=== PATIENT | female | born 1945 | race African-American/Black ===

== ENCOUNTER → 2017-08-10 | Outpatient (CLI) | payer OTHER ==
[~2017-08-10] MED LIST: ALLOPURINOL 30300 M1 PO; AMBIEN 10 MG TA10 MG; ASPIR 8181 MG PO; BENICAR40 MG; CELEXA40 MG; CENTRUM SILVER1 EAC4 PO; CLONAZEPAM 1 MG1 M1 PO; DIPHENHYDRAMINE25 M3 PO; DOCUSATE SODIU100 MG PO; IBUPROFEN 600600 M1 PO; KOMBIGLYZE XR1 EACH; LAMICTAL100 MG PO; LEVAQUIN 500 M500 MG PO; LEVEMIR100 UNIT/1 SUBQ; LEVOTHYROXINE 0.1 MG PO; LOSARTAN POTAS100 MG PO; MAG DELAY64 MG PO; METFORMIN HCL500 MG PO; OMEPRAZOLE 20 M20 MG PO; PAIN RELIEVER325 MG PO; PRAVACHOL40 MG; PRAVACHOL40 MG PO; PREDNISONE 5 MG5 MG PO; PROMETHAZINE-C120 ML; REMERON15 MG; SINGULAIR 10 MG10 M1; SLOW-MAG64 M1 PO; SPIRONOLACTONE25 M1 PO; TIROSINT75 MCG; TRAMADOL HCL50 MG PO; TRAZODONE 150150 M1; TUSSIONEX PENN473 ML PO; VALIUM5 MG PO; VITAMIN D3400 UNI2 PO; ZOFRAN4 MG PO; ZYRTEC 10 MG TA10 M1; ZYRTEC 10 MG TA10 MG PO
== END ==
LOC: SLEEPLAB 13:41
DX: G47.33 Obstructive sleep apnea (adult) (pediatric) (principal)

== ENCOUNTER 2020-01-11 16:53 | Emergency (ER) | payer OTHER ==
[~2020-01-11] VITALS: Ht 162.6 cm; Wt 82.1 kg
[2020-01-11] MEDS ORDERED: ONDANSETRON HCL4 M2 PO (18:36)
[2020-01-11 18:41] VITALS: BP 154/77
== END 2020-01-11 18:48 | disposition home or self-care (01) ==
LOC: ER 16:53
DX: S01.81XA Laceration without foreign body of other part of head, initial encounter (principal); E11.9 Type 2 diabetes mellitus without complications; G47.30 Sleep apnea, unspecified; I10 Essential (primary) hypertension; K21.9 Gastro-esophageal reflux disease without esophagitis; E03.9 Hypothyroidism, unspecified; E78.00 Pure hypercholesterolemia, unspecified; Z88.0 Allergy status to penicillin; Z88.8 Allergy status to other drugs, medicaments and biological substances; W00.9XXA Unspecified fall due to ice and snow, initial encounter; Y93.89 Activity, other specified; Y92.89 Other specified places as the place of occurrence of the external cause; Y99.8 Other external cause status

== ENCOUNTER 2020-01-14 07:54 | Inpatient (IN) | payer OTHER ==
[~2020-01-14] VITALS: Ht 160 cm; Wt 81.6 kg
--- NOTE | ~2020-01-14 | H ---
[facility] [place] [address] HISTORY AND PHYSICAL Name: MARINA ROSARIO Room #: 437-P ADM IN M.R.#: [id number] Admission: 01/14/20 Attend Phys: Brenda De Souza MD Discharge: Date of : 47 Report #: [id number] THIS REPORT FOR: //name// CC: FAM unknown Brenda De Souza DATE OF SERVICE: 01/14/2020 PRIMARY CARE PHYSICIAN: Dr. Xiang Wright at [facility]. PRIMARY PHARMACY: [facility] on [facility]. Durable power of corporate attorney for health and emergency contact in case the patient cannot make a decision is Archie Castellanos Angela, Jamie, Jane and all the 3 daughters. Emergency contact is [phone]. CHIEF COMPLAINT: Fever, nausea and vomiting since 9:00 p.m. last night. HISTORY OF PRESENT ILLNESS: The patient is a very pleasant 74-year-old female with a known history of diabetes, hypertension, gastroesophageal reflux disease, depression, anxiety and neuropathy. The patient informs me that last night she had a barbadian sausage and subsequently she started having abdominal cramping on both the side of the lower abdomen and also intractable nausea and vomiting. The patient denies any diarrhea, but she has had like at least 6 episodes of emesis since last night and felt like she had severe dry mouth and weakness and then started coughing up with a sore throat and so the patient decided to come to the hospital for further evaluation. The patient denies any hematochezia or melena. Denies any recent antibiotic use. She did not have any hematemesis, melena or hematochezia. The patient informs me that besides sore throat she has been having some cough and sore throat and postnasal drip and she really would like a nasal spray for her nasal congestion and allergies. The patient denies any sinus pressure or headache and denies any exposure to infection recently. The patient informs me that Saturday evening earlier this week, she had a fall as she was walking on the concrete in her [employer] and she was wearing tennis shoes; however, it was very needy and she slipped and left leg slipped and subsequently she sustained a fall, falling forward and had 6 stitches on forehead right here in the Emergency Room. The patient informs me that since then she has been very cautious and has not had any headache or dizziness or lightheadedness and she is supposed to see Dr. Wright in about 10 days to get the stitches taken out. The patient denies any weakness or numbness of any part of the body. Denies any dysuria, hematuria, frequency or urgency of urination. She, however, has noticed dark urine. She denies any chest pain, orthopnea or paroxysmal nocturnal dyspnea. PAST MEDICAL HISTORY: Significant for: [facility] [address] [place] [address] HISTORY AND PHYSICAL Name: MARINA ROSARIO Room #: 437-P [facility] IN M.R.#: [id number] Admission: 01/14/20 Attend Phys: Brenda De Souza MD Discharge: Date of : 47 Report #: [id number] 1. Obstructive sleep apnea. 2. Diabetes mellitus type 2. 3. Hypertension. 4. Hyperlipidemia. 5. Hypothyroidism. 6. Gastroesophageal reflux disease. 7. Obesity. ALLERGIES: The patient is allergic to CODEINE and PENICILLIN and they both cause rash. CURRENT MEDICATIONS: 1. Gabapentin. 2. Hydrocodone. 3. Esomeprazole. 4. Losartan. 5. Metformin. 6. Levothyroxine. 7. Paxil. 8. Buspirone. 9. Spironolactone. The patient recently had been given tizanidine and diclofenac, which she has not taken and she understands that they have GI and kidney toxicity and so she has not taken either one of them. FAMILY HISTORY: The patient informs me that mom had diabetes and father had stroke. Other than that she denies any history of cancer. PAST SURGICAL HISTORY: 1. The patient has had cervical spine fusion in 2003. 2. Left ankle surgery before that. 3. Bilateral salpingo-oophorectomy and hysterectomy. PERSONAL AND SOCIAL HISTORY: The patient denies any current tobacco or alcohol use or any recreational drug use and she is full code and her daughters are the durable power of corporate attorney for health, all 3 of them. REVIEW OF SYSTEMS: Ten point review of system was done. Please see the HPI above. In addition to the HPI, the patient also denied any skin rash or exposure to any infection. Nobody else in the family has been sick. PHYSICAL EXAMINATION: VITAL SIGNS: When the patient arrived, had a temperature of 39.3, heart rate 142, respirations 12, blood pressure 130/66 and pulse oximeter 92% on room air. At the time of examination; however, the patient had heart rate of 86, [facility] [address] [place] [address] HISTORY AND PHYSICAL Name: MARINA ROSARIO Room #: 437-P ADM IN M.R.#: [id number] Admission: 01/14/20 Attend Phys: Brenda De Souza MD Discharge: Date of : 47 Report #: [id number] respirations 16, blood pressure 155/79, pulse oximeter 96% and temperature was 39.3. GENERAL: Alert and oriented to time, place and person, very pleasant 74-year-old female who appears her stated age and is complaining of dry mouth. HEENT: The patient has a well-approximated incision of a recent stitches placed on the forehead and no induration, erythema noted. Pupils equally round, reactive to light. Conjunctivae clear. Sclerae nonicteric. Oropharynx clear. Mucous membranes dry. NECK: Supple, no JVD, no lymphadenopathy. HEART: S1, S2, regular. No murmur, no S3, no S4. Tachycardia noted at the time of admission has resolved. LUNGS: Clear to auscultation bilaterally without any crackles or wheezes. ABDOMEN: The patient has a mild discomfort in both lower quadrants as well as in the suprapubic area without any rebound, rigidity or mass noted and no hepatosplenomegaly noted. EXTREMITIES: No edema both lower extremities and skin was dry and intact. ASSESSMENT AND PLAN: 1. Acute febrile illness with systemic inflammatory response syndrome like syndrome with tachycardia, fever and leukocytosis. Influenza has been negative. We will go ahead and do stool for GI panel and PCR for common bacterial infection. Ciprofloxacin in diabetic patient can actually cause more complications and therefore we will use aztreonam for gram-negative coverage and metronidazole for gram-positive and anaerobic coverage and we will get a stool for Clostridium difficile PCR as well. We will go ahead and send stool smear for fecal leukocyte and stool occult blood as well. Lipase is negative. The patient does not have a history of cholecystectomy. However, liver function tests and alkaline phosphatase are all within normal limits, actually low normal, seriously doubt it could be gallbladder related pathology. The patient did have CT scan of abdomen and pelvis and that indicated mild atelectasis in both lower lobes and the gallbladder is unremarkable. Bile duct is normal in size. Pancreas and adrenals are unremarkable and renal cyst noted. Appendix was unremarkable. Colon, however, has a small to moderate amount of fluid throughout the colon with decreased formed stool suggesting recent diarrhea and consider gastroenteritis, so we would go ahead and treat it with gastroenteritis and continue IV fluids and UA, urine culture and sensitivity to be sent. 2. Diabetes mellitus type 2. We will hold metformin as it can cause diarrhea and we will use insulin sliding scale as well as low dose Lantus if the patient is able to take oral intake and her sugars are improving. 3. Hypertension. The patient is on losartan. We will go ahead and resume once the blood pressure starts to trend up. Otherwise, we will use initially hydralazine IV if the patient continues to have nausea and vomiting. 4. Gastroesophageal reflux disease. The patient is on omeprazole; however, because of the nausea and vomiting, we will just use IV Pepcid for now. 5. Hyperlipidemia. Hold statins at the present time. 6. Questionable seizure disorder. The patient is on Lamictal [place] [address] HISTORY AND PHYSICAL Name: MARINA ROSARIO Room #: 437-P [facility] IN M.R.#: [id number] Admission: 01/14/20 Attend Phys: Brenda De Souza MD Discharge: Date of : 47 Report #: [id number] and clonazepam 1 mg at bedtime. We will go ahead and resume that. 7. Obstructive sleep apnea. The patient has continuous positive airway pressure machine with her and we will go ahead and use home continuous positive airway pressure machine. 8. The patient had recent fall, which was completely mechanical with stitches on the forehead, which are healing well and a CT head is reviewed that was done in the Emergency Room and is within normal limits. 9. The patient wishes to be full code. Orders are written. Deep vein thrombosis prophylaxis. Once his stool occult blood is negative, then we will use Lovenox for DVT prophylaxis. Plan of care was discussed with the patient and her daughter, Jasmin Almanza sitting at the bedside as well as with the ER provider and we will get PT and OT consult for fall prevention education. 10. Allergies, sore throat and sinus drainage. The patient's CT scan of the head does not show any sinus infection. We will go ahead and use Flonase nasal spray and add Zyrtec or Claritin for allergies. By: 29 Brenda De Souza MD /nt
[~2020-01-14 07:54] MED LIST changes: +ONDANSETRON HCL4 M2 PO
[2020-01-14 08:04] VITALS: BP 130/66
[2020-01-14 08:42] LABS: URINE BILIRUBIN NEGATIVE (Negative); URINE BLOOD TRACE (Negative); URINE CLARITY CLEAR; URINE COLOR YELLOW; URINE GLUCOSE-RANDOM* NEGATIVE (Negative); URINE KETONES NEGATIVE (Negative); URINE LEUKOCYTES-REFLEX NEGATIVE (Negative); URINE NITRITE-REFLEX NEGATIVE (Negative); URINE PROTEIN (DIPSTICK) NEGATIVE (Negative); URINE SPECIFIC GRAVITY 1.015 (1.005-1.035); URINE UROBILINOGEN 0.2 E.U./dl (0.2-1.0)
[2020-01-14 08:59] LABS: ABSOLUTE NEUTROPHILS 10.9 thou/uL (1.4-8.2); BASOPHILS 0.7 % (0.0-2.0); EOSINOPHILS 0.7 % (0.0-3.0); HEMATOCRIT 36.3 % (37.0-47.0); HEMOGLOBIN 11.9 gm/dL (12.0-15.0); LYMPHOCYTES 2.6 % (24.0-44.0); MCH 28.9 pg (26.0-34.0); MCHC 32.7 g/dL (28.0-37.0); MCV 88.3 fL (80.0-100.0); MONOCYTES 3.4 % (1.0-8.0); PLATELET COUNT 250 thou/uL (150-400); POLYS 92.6 % (36.0-66.0); RBC 4.11 mil/uL (4.20-5.00); RDW 13.1 % (10.5-14.5); WBC 11.7 thou/uL (4.0-11.0)
--- NOTE | 2020-01-14 10:27 | EKG ---
[facility] [place] [address] [place] [address] ELECTROCARDIOGRAM REPORT Name: MARINA ROSARIO Room #: [facility].#: [id number] Admission: 01/14/20 Attend Phys: Discharge: Date of : 47 Report #: [id number] THIS REPORT FOR: cc: FAM - Family physician unknown FAM - Family physician unknown Benson Daniel MD ~ THIS REPORT FOR: //name// [facility] ED Test Date: 2020-01-14 Test Time: 09:55:47 Pat Name: MARINA ROSARIO Department: Room: Gender: F Yield Engineer: [place] : 1945 Requested By: Tanya Torres Order Number: [id number] MD: Benson Daniel Measurements Intervals [place] Rate: 114 P: 48 KS: 150 QRS: -65 QRSD: 91 T: 30 QT: 324 QTc: 447 Interpretive Statements Sinus tachycardia Probable left atrial enlargement Left anterior fascicular block Low voltage, extremity leads Abnormal R-wave progression, late transition Probable left ventricular hypertrophy Compared to ECG 07/21/2011 19:47:44 Low QRS voltage now present Sinus rhythm no longer present Electronically Signed On 01-14-2020 10:22:01 [employer]RILL [employer] OPERATOR by Benson Daniel [email or web address] <ELECTRONICALLY SIGNED> By: Benson Daniel MD 01/14/20 1022 4 4 Benson Daniel MD /EPI
[2020-01-14 12:38] LABS: CREATININE 0.9 mg/dL (0.6-1.0); POTASSIUM 3.5 mmol/L (3.5-5.1)
[2020-01-14 12:44] LABS: ALBUMIN 3.1 g/dL (3.4-5.0); TOTAL BILIRUBIN 0.2 mg/dL (<0.1-1.0); TOTAL PROTEIN 7.2 g/dL (6.4-8.2)
[2020-01-14 16:29] VITALS: BP 138/61
[2020-01-14 17:10] VITALS: BP 155/79
--- NOTE | 2020-01-14 18:20 | NUR ---
ASSUMED CARE OF THE PT AT 1745. PT DIET CHANGED TO HEART HEALTHY PER DOCTOR. R AC DRY AND INTACT. SUTURES ON FOREHEAD DRY AND INTACT. PT IS RA. NO C/O N/V/D. FALL PRECAUTIONS IN PLACE, BED IN THE LOWEST POSITION AND CALL LIGHT IS WITHIN REACH. WILL CONTINUE TO MONITOR THE PT.
[2020-01-14 20:35] VITALS: BP 140/61
--- NOTE | 2020-01-14 22:14 | NUR ---
ADMISSION HX,EDUCATION AND ASSESSMENT COMPLETED.PT CONT TO HAVE DIARRHEA,STOOL COLLECTED.PT ON ISOLATION FOR PRESUMPTIVE CDIFF.SUTURES ON HER FOREHEAD C/D/I.PT UP WITH ASSIST X1 AND WALKER TO THE BR.PT SLEEPING ON HER BED AT THIS TIME WITH HER CPAP.FALL PRECAUTIONS IN PLACE,CALL LIGHT WITHIN REACH.
--- NOTE | 2020-01-15 04:02 | NUR ---
Patient has been resting in bed this shift. Large loose stool present x2, continent. Patient alert and oriented x4. Pleasant and cooperative. Patient reporting headache and requested PRN Tylenol. Patient also reporting nausea and provided PRN Zofran. IV to right AC, no redness, drainage or swelling present. CPAP worn, tolerating well. Will pass on to day shift that picture of forehead laceration needs to be completed. Patient ambulating to toilet with stand by assist. Good balance, steady gait.
[2020-01-15 04:45] LABS: ABSOLUTE NEUTROPHILS 5.7 thou/uL (1.4-8.2); BASOPHILS 0.2 % (0.0-2.0); EOSINOPHILS 0.6 % (0.0-3.0); HEMATOCRIT 30.5 % (37.0-47.0); LYMPHOCYTES 9.7 % (24.0-44.0); MCH 29.2 pg (26.0-34.0); MCHC 32.7 g/dL (28.0-37.0); MCV 89.3 fL (80.0-100.0); MONOCYTES 6.5 % (1.0-8.0); PLATELET COUNT 194 thou/uL (150-400); RBC 3.41 mil/uL (4.20-5.00); RDW 12.6 % (10.5-14.5); WBC 6.9 thou/uL (4.0-11.0)
[2020-01-15 04:55] LABS: CALCIUM 7.7 mg/dL (8.5-10.1); CREATININE 0.9 mg/dL (0.6-1.0); MAGNESIUM 1.4 mg/dL (1.8-2.4); PHOSPHORUS 2.5 mg/dL (2.5-4.9); POTASSIUM 3.3 mmol/L (3.5-5.1); TOTAL BILIRUBIN 0.3 mg/dL (<0.1-1.0)
[2020-01-15 07:45] VITALS: BP 123/57
[2020-01-15 11:15] VITALS: BP 133/73; BP 136/71; BP 146/67
--- NOTE | 2020-01-15 12:37 | NUR ---
REPORT RECEIVED FROM NATY RN, PT ASSESSED, VSS, PT ABLE TO AMBULATE TO BATHROOM WITH STEADY GAIT, STATES THAT SHE HAD A SMALL BM DURING THE NIGHT AND IT WAS LESS RUNNY THAN BEFORE. NONE SINCE, WILL CONTINUE TO MONITOR. DISCUSSED THE CDIFF SAMPLE THAT WAS SENT AND WAITING FOR RESULTS. PT VERBALIZED UNDERSTANDING.
[2020-01-15 14:25] LABS: HEMATOCRIT 31.3 % (37.0-47.0); HEMOGLOBIN 10.2 gm/dL (12.0-15.0)
[2020-01-15 14:32] LABS: MAGNESIUM 1.9 mg/dL (1.8-2.4); POTASSIUM 3.6 mmol/L (3.5-5.1)
[2020-01-15 15:19] VITALS: BP 143/72
[2020-01-15 20:50] VITALS: BP 152/53
[2020-01-16 05:00] VITALS: BP 131/56
--- NOTE | 2020-01-16 05:08 | NUR ---
ASSUMED PT CARE AROUND 1900. A&OX4. C/O MILD ABDOMINAL PAIN THAT WAS RELIEVED BY MEDICATION. C/O SOME NAUSEA AT BEGINNING OF SHIFT, WHICH PT LATER STATED RESOLVED. PT IS UP W/ SBA, STEADY GAIT. FALL PRECAUTIONS IN PLACE. PT SLEPT MOST OF THE NIGHT WITH CPAP ON. RESP EVEN AND UNLABORED. PROGRESSING TOWARD POC GOALS. WILL CONTINUE TO MONITOR FURTHER.
[2020-01-16 06:17] LABS: HEMATOCRIT 30.9 % (37.0-47.0); HEMOGLOBIN 10.4 gm/dL (12.0-15.0); MCH 29.6 pg (26.0-34.0); MCHC 33.7 g/dL (28.0-37.0); PLATELET COUNT 209 thou/uL (150-400); RBC 3.51 mil/uL (4.20-5.00); WBC 5.1 thou/uL (4.0-11.0)
[2020-01-16 06:40] LABS: ALBUMIN 3.3 g/dL (3.4-5.0); CALCIUM 9.1 mg/dL (8.5-10.1); CREATININE 0.9 mg/dL (0.6-1.0); MAGNESIUM 1.8 mg/dL (1.8-2.4); PHOSPHORUS 2.7 mg/dL (2.5-4.9); POTASSIUM 3.4 mmol/L (3.5-5.1); TOTAL BILIRUBIN 0.2 mg/dL (<0.1-1.0); TOTAL PROTEIN 7.8 g/dL (6.4-8.2)
[2020-01-16 07:10] VITALS: BP 157/70
[2020-01-16 08:28] LABS: ABSOLUTE NEUTROPHILS 3.3 thou/uL (1.4-8.2); PLATELET ESTIMATE NORMAL
[2020-01-16 16:19] VITALS: BP 157/70
[2020-01-16 16:22] VITALS: BP 157/70
--- NOTE | 2020-01-16 17:43 | NUR ---
ASSUMED CARE PT SHIFT CHANGE. ASSESSMENT CHARTED. MEDS GIVEN PER JAN. PT ALERT AND ORIENTED. VSS. DENIES PAIN. O2 SATS WNL ON ROOM AIR. PT SEEN BY PHYS THERAPY ,TOLERATED WELL--SEE PHYS THERAPY NOTE. IV ABX ADMINISTERED PER JAN. DC ORDERS ACKNOWLEDGED AND IMPLEMENTED. DC PAPERWORK DISCUSSED WITH PT, COMMUNICATES UNDERSTANDING. IV REMOVED. PT LEFT UNIT WITH ALL BELONGINGS.
[2020-01-17] MEDS ORDERED: ASPIRIN EC81 M1 PO (08:21)
== END 2020-01-16 16:38 | disposition home or self-care (01) | DRG 392 ==
LOC: ER 07:54 → 4S 16:03 → EROBS 16:03 → 4S 17:10
PROVIDERS: Student in an Organized Health Care Education/Training Program; ADMIT Internal Medicine
PROC: 5A09357 Assistance with Respiratory Ventilation, Less than 24 Consecutive Hours, Continuous Positive Airway Pressure (ICD-10-PCS; principal; 2020-01-15)
DX: K52.9 Noninfective gastroenteritis and colitis, unspecified (principal); N17.9 Acute kidney failure, unspecified; R65.10 Systemic inflammatory response syndrome (SIRS) of non-infectious origin without acute organ dysfunction; E78.00 Pure hypercholesterolemia, unspecified; K21.9 Gastro-esophageal reflux disease without esophagitis; M10.9 Gout, unspecified; E03.9 Hypothyroidism, unspecified; R00.0 Tachycardia, unspecified; E86.0 Dehydration; G47.33 Obstructive sleep apnea (adult) (pediatric); E78.5 Hyperlipidemia, unspecified; G47.00 Insomnia, unspecified; I12.9 Hypertensive chronic kidney disease with stage 1 through stage 4 chronic kidney disease, or unspecified chronic kidney disease; E11.22 Type 2 diabetes mellitus with diabetic chronic kidney disease; N18.3 Chronic kidney disease, stage 3 (moderate); E66.9 Obesity, unspecified; E87.6 Hypokalemia; E83.42 Hypomagnesemia; Z79.1 Long term (current) use of non-steroidal anti-inflammatories (NSAID); Z79.4 Long term (current) use of insulin; Z87.81 Personal history of (healed) traumatic fracture; Z88.6 Allergy status to analgesic agent; Z88.0 Allergy status to penicillin; Z68.31 Body mass index [BMI] 31.0-31.9, adult; Z90.722 Acquired absence of ovaries, bilateral; Z83.3 Family history of diabetes mellitus; Z82.3 Family history of stroke; Z79.82 Long term (current) use of aspirin
CPT/HCPCS: 10195

== ENCOUNTER → 2020-03-16 | Outpatient (CLI) | payer OTHER ==
[~2020-03-16] MED LIST changes: +ASPIRIN EC81 M1 PO
== END ==
LOC: SJCVC 11:00
DX: R00.2 Palpitations (principal); R07.9 Chest pain, unspecified; I10 Essential (primary) hypertension; E78.00 Pure hypercholesterolemia, unspecified; E11.9 Type 2 diabetes mellitus without complications; J45.909 Unspecified asthma, uncomplicated; K21.9 Gastro-esophageal reflux disease without esophagitis; Z79.4 Long term (current) use of insulin; Z79.84 Long term (current) use of oral hypoglycemic drugs; Z79.899 Other long term (current) drug therapy

== ENCOUNTER → 2020-04-15 | Outpatient (CLI) | payer OTHER | LOC: SJCVCIMAG 10:34 | DX: I11.9 Hypertensive heart disease without heart failure (principal); I08.8 Other rheumatic multiple valve diseases; I49.3 Ventricular premature depolarization; I25.10 Atherosclerotic heart disease of native coronary artery without angina pectoris; E78.00 Pure hypercholesterolemia, unspecified; Z90.710 Acquired absence of both cervix and uterus; Z79.899 Other long term (current) drug therapy ==

== ENCOUNTER → 2020-08-11 | Outpatient (CLI) | payer OTHER | LOC: RAD 11:46 | PROVIDERS: ATTEND Pediatrics | DX: R06.02 Shortness of breath (principal); R06.00 Dyspnea, unspecified ==

== ENCOUNTER → 2021-04-20 | Outpatient (CLI) | payer OTHER | LOC: SJCVC 13:06 | PROVIDERS: ATTEND Internal Medicine Cardiovascular Disease | DX: R94.31 Abnormal electrocardiogram [ECG] [EKG] (principal); I21.9 Acute myocardial infarction, unspecified; I25.10 Atherosclerotic heart disease of native coronary artery without angina pectoris; E78.00 Pure hypercholesterolemia, unspecified; E11.22 Type 2 diabetes mellitus with diabetic chronic kidney disease; I12.9 Hypertensive chronic kidney disease with stage 1 through stage 4 chronic kidney disease, or unspecified chronic kidney disease; N18.9 Chronic kidney disease, unspecified; J45.909 Unspecified asthma, uncomplicated; G47.33 Obstructive sleep apnea (adult) (pediatric); Z88.0 Allergy status to penicillin; Z88.5 Allergy status to narcotic agent; Z79.84 Long term (current) use of oral hypoglycemic drugs; Z79.899 Other long term (current) drug therapy ==

== ENCOUNTER → 2021-10-13 | Outpatient (CLI) | payer OTHER | LOC: SJCVC 13:22 | PROVIDERS: ATTEND Internal Medicine Cardiovascular Disease | DX: R00.1 Bradycardia, unspecified (principal); I25.10 Atherosclerotic heart disease of native coronary artery without angina pectoris; E78.00 Pure hypercholesterolemia, unspecified; R00.2 Palpitations; E11.22 Type 2 diabetes mellitus with diabetic chronic kidney disease; I12.9 Hypertensive chronic kidney disease with stage 1 through stage 4 chronic kidney disease, or unspecified chronic kidney disease; N18.9 Chronic kidney disease, unspecified; J45.909 Unspecified asthma, uncomplicated; G47.09 Other insomnia; G47.33 Obstructive sleep apnea (adult) (pediatric); M19.90 Unspecified osteoarthritis, unspecified site; Z79.84 Long term (current) use of oral hypoglycemic drugs; Z79.899 Other long term (current) drug therapy; Z88.0 Allergy status to penicillin; Z88.5 Allergy status to narcotic agent ==